=== PATIENT | female | born 1955 | race Caucasian/White ===

== ENCOUNTER 2023-11-14 07:52 | Outpatient (CLI) | payer MEDICARE | END 2023-11-14 07:53 | disposition home or self-care (01) | LOC: BICMAMMO 07:52 | PROVIDERS: ATTEND Family Medicine Sports Medicine | DX: Z12.31 Encounter for screening mammogram for malignant neoplasm of breast (principal); Z91.89 Other specified personal risk factors, not elsewhere classified | CPT/HCPCS: 77063; 77067 ==